=== PATIENT | female | born 1950 | race Caucasian/White ===

== ENCOUNTER 2019-05-28 09:09 | Outpatient (CLI) | payer MEDICARE, SELFPAY ==
[2019-05-28 09:50] LABS: Basophils % 0.3 %; Eosinophils % 0.7 %; Hematocrit 36.9 % (37.0-47.0); Hemoglobin 11.8 g/dL (11.5-15.3); Lymphocytes # 1.2 10^3/uL (0.8-4.8); Lymphocytes % 20.6 %; Mean Corpuscular Hemoglobin 27.2 pg (28.0-34.0); Mean Platelet Volume 10.3 fL (7.4-10.4); Monocytes # 0.5 10^3/uL (0.2-0.9); Monocytes % 8.6 %; Neutrophils # 4.1 10^3/uL (1.8-7.7); Neutrophils % 69.6 %; Nucleated Red Blood Cells % 0 %; Platelet Count 216 10^3/cmm (130-400); Red Blood Count 4.34 10^6/uL (4.1-5.3); Red Cell Distribution Width 13.1 % (12.1-15.1); White Blood Count 5.8 10^3/uL (4.0-10.0)
[2019-05-28 10:07] LABS: Alanine Aminotransferase 11 U/L (0-33); Albumin Level 4.1 g/dL (3.5-5.2); Alkaline Phosphatase 44 IU/L (35-105); Anion Gap 16.9 (5-19); Aspartate Amino Transferase 19 U/L (0-32); Blood Urea Nitrogen 10 mg/dL (8-23); Calcium 10.1 mg/dL (8.5-10.5); Carbon Dioxide 26 mmol/L (22-29); Chloride 99 mmol/L (98-107); Globulin 3.5 g/dL (1.3-4.6); Glomerular Filtration Rate 82.7 mL/min (90-130); Glucose 103 mg/dL (65-115); Potassium 3.9 mmol/L (3.5-5.1); Sodium 138 mmol/L (136-145); Thyroid Stimulating Hormone 3.23 uIU/mL (0.27-4.20); Total Bilirubin 0.5 mg/dL (0.15-1.2); Total Protein 7.6 g/dL (6.6-8.7)
[2019-05-28 10:17] LABS: 25 Hydroxy Vitamin D 100 ng/mL (30-100)
[2019-05-28 16:35] LABS: Iron 99 ug/dL (37-145); Percent Saturation 32.8 % (20-50); Total Iron Binding Capacity 301 mcg/dl; Unsaturated Iron Binding 202 ug/dL (112-347)
--- NOTE | 2019-05-31 06:55 | ONC FU_ITS ---
Dr. Mcfarland Patient Follow-Up Note Patient: Oksana Ma Unit #: [id number]: 1950 Dicatated By: Arnold Mcfarland M.D.Date of Visit:May 28, 2019 Onc Med Follow-up/Prog Note Chief Complaint: Breast cancer. History of Present Illness: This is a 68 year-old woman with grade 2 infiltrating ductal carcinoma of the right breast, stage IA (T1b, N0, M0), ER/CA positive and HER-2/eva negative. She has been in good general health. She had presented with an abnormal screening mammogram. The initial study, from 06/14/2018, was BI-RADS 0, incomplete. Findings included a 9 mm increasing asymmetric density in the upper inner quadrant of the right breast. Additional mammographic views with right breast ultrasound on 07/04/2018 was BI-RADS IVB, suspicious. The mammogram showed a slightly spiculated 9 mm nodular density in the upper inner right breast near the 1:00 position. Ultrasound showed a hypoechoic solid lesion measuring approximately 1.0 x 0.4 x 0.8 cm. Ultrasound-guided biopsy of the right breast on 08/01/2018 showed grade 2 infiltrating ductal carcinoma. The breast prognostic profile showed ER positive at 93% and CA positive at 91%. The tumor was negative for overexpression of HER-2/eva, 1+ by IHC and amplification ratio by FISH of 1.2 with 2.4 HER-2 copies/cell. On 08/30/2017 she underwent right breast lumpectomy with axillary sentinel lymph node biopsy. Pathology showed grade 1 infiltrating ductal carcinoma measuring 0.9 x 0.6 cm. The margins were free of tumor and significant atypia. There was no involvement in 2 sentinel lymph nodes. She was referred to Dr. Garcia for radiation to the right breast. She completed treatment on 10/23/2018 to a total dose of 5256 cGy. She then began adjuvant hormonal therapy with anastrozole 1 mg daily. Her other medical illnesses includee hypertension and osteopenia. Her bone density study in June 2016 showed T score -2.0 in the lumbar spine and -2.0 in both hips. She is a nonsmoker. She is seen for a scheduled visit. She has been feeling good generally. She has good energy and activity tolerance. She has good appetite. Her weight is stable. She has no fever, night sweats, or hot flashes. She has cough associated with sinus drainage. She has no shortness of breath or chest pain. She has no GI or complaints. She has some arthritis in her right thumb. She has had a little low back pain recently. She has no other joint or bone pain. She has no focal neurologic symptoms. Medications: Aleve 1 (220 mg) Tablet Oral PRN, amLODIPine Besylate 1 Tablet (of 5 mg) Oral daily, Anastrozole 1 Tablet (of 1 mg) Oral daily, Calcium Citrate-Vitamin D 1 (600-1000 mg - Units) Tablet Oral daily, Flonase Allergy Relief 2 spray(s) (of 50 mcg/act) Suspension Nasal daily, Fosamax 1 (70 mg) Tablet Oral q 7 days, Lisinopril 1 Tablet (of 20 mg) Oral daily Allergies: Macrobid Review of Systems: Constitutional - She has good energy and her activity is normal. Appetite is good. Her weight is stable. She has no fever, hot flashes, or night sweats. ECOG score is 0, ENMT - She has occasional allergy related sinus symptoms. No mouth sores. No sore throat or difficulty swallowing, Hematologic/Lymphatic - She has some bruising, Respiratory - No shortness of breath. She has some cough with the sinus drainage. No pleuritic pain or hemoptysis, Cardiovascular - No angina pain. No palpitations, Gastrointestinal - No nausea or vomiting. No heartburn or acid reflux. No diarrhea or constipation. No blood in the stool or black stools, Genitourinary (F) - No dysuria or hematuria. No urinary frequency. No urgency or incontinence, Musculoskeletal - She has a little arthritis in her right thumb. She has no other joint or bone pain, Neurologic - No headache. She has occasional dizziness. No numbness/paresthesias or other focal neurologic symptoms, Psychiatric - No anxiety or depression. No insomnia. Vital Signs: Performed on May 28, 2019 13:31 Height - 64.00 in Weight - 142.4 lbs (HIGH) BSA - 1.69 sq.m BMI - 24.44 Temperature - 98.5 F Pulse - 70 /min Respiration - 18 /min BP - 134/78 mm(hg) O2 Sat - 100 % Pain - 0 Physical Examination: Constitutional - She looks good generally, Eyes - Sclerae nonicteric. Conjunctivae clear, ENMT - No lesions noted in the oral cavity, Hematologic/Lymphatic - No cervical, clavicular, or axillary adenopathy, Respiratory - Lungs are clear with good air movement bilaterally, Cardiovascular - Heart rhythm is regular. There is no murmur, gallop, or rub noted, Abdomen - Soft. Liver and spleen are not enlarged. There is no abdominal mass or ascites noted and there is no inguinal adenopathy, Extremities - No edema. Pedal pulses are palpable bilaterally, Neurologic - No focal neurologic deficits noted. Lab/Imaging: Test performed on May 28, 2019 09:21 Iron 99 ug/dL Sodium 138 mmol/L TSH 3.23 uIU/mL Vitamin D (25-Hydroxy), Total 100 ng/mL Potassium 3.9 mmol/L Chloride 99 mmol/L CO2 26 mmol/L UIBC 202 ug/dL Anion Gap 16.9 BUN 10 mg/dL Creatinine 0.7 mg/dL Cr Clearance (Est) 76.26 mL/min eGFR 82.7 mL/min Glucose 103 mg/dL Calcium 10.1 mg/dL Protein, Total 7.6 g/dL Albumin 4.1 g/dL Globulin 3.5 g/dL Bilirubin, Total 0.5 mg/dL ALT (SGPT) 11 U/L AST (SGOT) 19 U/L Alkaline Phosphatase 44 IU/L WBC 5.8 10 3/uL RBC 4.34 10 6/uL HGB 11.8 g/dL HCT 36.9 % MCV 85.0 fL MCH 27.2 pg MCHC 32.0 g/dL RDW 13.1 % Platelet Count 216 10 3/cmm MPV 10.3 fL Neutrophils 4.1 10 3/uL Lymphocytes 1.2 10 3/uL Monocytes 0.5 10 3/uL Eosinophils 0.0 10 3/uL Basophils 0.0 10 3/uL Neutrophil % 69.6 % Lymphocyte % 20.6 % Monocyte % 8.6 % Eosinophil % 0.7 % Basophils % 0.3 % Impression: 1. Patient with grade 2 infiltrating ductal carcinoma of the right breast, stage IA (T1b, N0, M0), ER/CA positive and HER-2/eva negative. 2. She underwent ultrsound directed biopsy of the right breast on 08/01/2018 followed by right breast lumpectomy and axillary sentinel lymph node biopsy on 08/30/2018. 3. She completed radiation to the right breast on 10/23/2018 to a total dose of 5256 cGy. Her other medical illnesses include: 4. Hypertension. 5. Osteoporosis. She began adjuvant hormonal therapy with anastrozole 1 mg daily in October 2018. Thus far she has been tolerating it well. There has been no evidence of recurrence of her breast cancer. Plan: She continues adjuvant hormonal therapy with anastrozole 1 mg daily. She will be scheduled for a followup visit in 6 months. In the meantime, she will need a repeat bone density study. Signed By: Arnold Mcfarland M.D. <<Signature on File>>
== END 2019-05-28 09:10 | disposition home or self-care (01) ==
LOC: ONCMED 09:12
PROVIDERS: PCP Nurse Practitioner Family; Visit Provider Internal Medicine Medical Oncology
DX: C50.211 Malignant neoplasm of upper-inner quadrant of right female breast (principal); D64.9 Anemia, unspecified; M81.0 Age-related osteoporosis without current pathological fracture; E55.9 Vitamin D deficiency, unspecified; I10 Essential (primary) hypertension; M54.5 Low back pain; Z17.0 Estrogen receptor positive status [ER+]; Z79.811 Long term (current) use of aromatase inhibitors; Z92.3 Personal history of irradiation
CPT/HCPCS: 80053; 82306; 83540; 83550; 84443; 85025; 99214

== ENCOUNTER 2019-07-11 10:50 | Outpatient (CLI) | payer MEDICARE, SELFPAY ==
--- NOTE | 2019-07-11 11:26 | MM_ITS ---
WS: [id number] DIAGNOSTIC BILATERAL DIGITAL MAMMOGRAM WITH CAD HISTORY: HX OF BREAST CA COMPARISON: 07/04/2018, 06/14/2018 and 05/15/2017 TECHNIQUE: Bilateral craniocaudad, mediolateral oblique, and mediolateral views are submitted. Comput er aided detection utilized. Breast composition: The breasts are heterogeneously dense, which may obscure small masses. Postsurgic al site in the RIGHT breast at the 12-1 o'clock axis posteriorly. Increased parenchymal thickening at the surgical site and postradiation treatment. Will anticipate additional follow-up imaging. Otherwi se benign calcifications in each breast. MM/[id number] IMPRESSION: BI-RADS: 3-Probably Benign FOLLOW UP: 1 Year Follow-up Diagnostic mammogram recommended in 12 months to reevaluate the recent postsurg ical and postradiation changes in the RIGHT breast and document continued stabi lity.
== END 2019-07-11 10:51 | disposition home or self-care (01) ==
LOC: MAMMO 10:52
PROVIDERS: PCP Nurse Practitioner Family; Visit Provider Nurse Practitioner
DX: Z85.3 Personal history of malignant neoplasm of breast (principal)
CPT/HCPCS: 77066

== ENCOUNTER 2019-11-27 08:45 | Outpatient (CLI) | payer MEDICARE, SELFPAY ==
--- NOTE | 2019-11-28 06:29 | ONC FU_ITS ---
Dr. Mcfarland Patient Follow-Up Note Patient: Oksana Ma Unit #: [id number]: 1950 Dicatated By: Arnold Mcfarland M.D.Date of Visit:Nov 27, 2019 Onc Med Follow-up/Prog Note Chief Complaint: Breast cancer. History of Present Illness: This is a 69 year-old woman with grade 2 infiltrating ductal carcinoma of the right breast, stage IA (T1b, N0, M0), ER/PA positive and HER-2/eva negative. She has been in good general health. She had presented with an abnormal screening mammogram. The initial study, from 06/14/2018, was BI-RADS 0, incomplete. Findings included a 9 mm increasing asymmetric density in the upper inner quadrant of the right breast. Additional mammographic views with right breast ultrasound on 07/04/2018 was BI-RADS IVB, suspicious. The mammogram showed a slightly spiculated 9 mm nodular density in the upper inner right breast near the 1:00 position. Ultrasound showed a hypoechoic solid lesion measuring approximately 1.0 x 0.4 x 0.8 cm. Ultrasound-guided biopsy of the right breast on 08/01/2018 showed grade 2 infiltrating ductal carcinoma. The breast prognostic profile showed ER positive at 93% and PA positive at 91%. The tumor was negative for overexpression of HER-2/eva, 1+ by IHC and amplification ratio by FISH of 1.2 with 2.4 HER-2 copies/cell. On 08/30/2017 she underwent right breast lumpectomy with axillary sentinel lymph node biopsy. Pathology showed grade 1 infiltrating ductal carcinoma measuring 0.9 x 0.6 cm. The margins were free of tumor and significant atypia. There was no involvement in 2 sentinel lymph nodes. She was referred to Dr. Garcia for radiation to the right breast. She completed treatment on 10/23/2018 to a total dose of 5256 cGy. She then began adjuvant hormonal therapy with anastrozole 1 mg daily. Her other medical illnesses includee hypertension and osteopenia. Her bone density study in June 2016 showed T score -2.0 in the lumbar spine and -2.0 in both hips. She is a nonsmoker. She is seen for a scheduled visit. She has been feeling good generally. She has good energy and activity tolerance. ECOG score is 0. She has good appetite. She has no fever, night sweats, or hot flashes. She has a little bit of cough occasionally. She has no shortness of breath or chest pain. She has no GI or complaints. She has had some pain in her right hand, but no other joint or bone pain. She has no focal neurologic symptoms. Medications: Aleve 1 (220 mg) Tablet Oral PRN, amLODIPine Besylate 1 Tablet (of 5 mg) Oral daily, Anastrozole 1 Tablet (of 1 mg) Oral daily, Calcium Citrate-Vitamin D 1 (600-1000 mg - Units) Tablet Oral daily, Flonase Allergy Relief 2 spray(s) (of 50 mcg/act) Suspension Nasal daily, Fosamax 1 (70 mg) Tablet Oral q 7 days, Lisinopril 1 Tablet (of 20 mg) Oral daily Allergies: Macrobid Review of Systems: Constitutional - She has been feeling good. Her energy is good and she has normal activity without restrictions. Her appetite is good and weight is stable. No fever, night sweats, or hot flashes. ECOG score is 0, ENMT - She has seasonal allergies. No mouth sores. No sore throat or difficulty swallowing, Hematologic/Lymphatic - No abnormal bruising or bleeding, Respiratory - No shortness of breath. She occasionally has a little cough. No pleuritic pain or hemoptysis, Cardiovascular - No angina pain. No palpitations, Gastrointestinal - No nausea or vomiting. No heartburn or acid reflux. No diarrhea or constipation. No blood in the stool or black stools, Genitourinary (F) - No dysuria or hematuria. No urinary frequency. No urgency or incontinence, Musculoskeletal - She has arthritis pain in her right hand, Integumentary - No skin complications, Neurologic - No headache or dizziness. No numbness or tingling. No other focal neurologic symptoms, Psychiatric - No anxiety or depression. No insomnia. Vital Signs: Performed on Nov 27, 2019 08:54 Height - 64.00 in Weight - 142.0 lbs (LOW) BSA - 1.69 sq.m BMI - 24.37 Temperature - 99.3 F (HIGH) Pulse - 74 /min Respiration - 18 /min BP - 134/78 mm(hg) O2 Sat - 97 % Pain - 0 Physical Examination: Constitutional - She looks good generally, Eyes - Sclerae nonicteric. Conjunctivae clear, ENMT - No lesions noted in the oral cavity, Hematologic/Lymphatic - No cervical or clavicular adenopathy, Respiratory - Lungs are clear with good air movement bilaterally, Cardiovascular - Heart rhythm is regular. There is no murmur, gallop, or rub noted, Breasts - There are no breast masses noted. There is no axillary adenopathy, Abdomen - Soft. Liver and spleen are not enlarged. There is no abdominal mass or ascites noted and there is no inguinal adenopathy, Extremities - No edema. Pedal pulses are palpable bilaterally, Neurologic - No focal neurologic deficits noted. Lab/Imaging: CBC shows hemoglobin 11.9 g, white blood cell count 6100, and platelet count 241,000. Comprehensive metabolic profile is unremarkable. Impression: 1. Patient with grade 2 infiltrating ductal carcinoma of the right breast, stage IA (T1b, N0, M0), ER/PA positive and HER-2/eva negative. 2. She underwent ultrsound directed biopsy of the right breast on 08/01/2018 followed by right breast lumpectomy and axillary sentinel lymph node biopsy on 08/30/2018. 3. She completed radiation to the right breast on 10/23/2018 to a total dose of 5256 cGy. Her other medical illnesses include: 4. Hypertension. 5. Osteoporosis. She began adjuvant hormonal therapy with anastrozole 1 mg daily in October 2018. Thus far she has been tolerating it well. There has been no evidence of recurrence of her breast cancer. Plan: As she does have underlying osteopenia, will need to to make sure her DEXA scan is current. I will otherwise just plan to see her for a follow-up visit in 6 months. Signed By: Arnold Mcfarland M.D. <<Signature on File>>
== END 2019-11-27 08:46 | disposition home or self-care (01) ==
LOC: ONCMED 08:47
PROVIDERS: PCP Nurse Practitioner Family; Visit Provider Internal Medicine Medical Oncology
DX: C50.211 Malignant neoplasm of upper-inner quadrant of right female breast (principal); Z17.0 Estrogen receptor positive status [ER+]; Z92.3 Personal history of irradiation; Z79.811 Long term (current) use of aromatase inhibitors; I10 Essential (primary) hypertension; M81.0 Age-related osteoporosis without current pathological fracture
CPT/HCPCS: 99214

== ENCOUNTER 2020-06-22 10:11 | Outpatient (CLI) | payer MEDICARE, SELFPAY ==
--- NOTE | 2020-06-25 07:30 | ONC FU_ITS ---
Dr. Mcfarland Patient Follow-Up Note Patient: Oksana Ma Unit #: [id number]: 1950 Dicatated By: Arnold Mcfarland M.D.Date of Visit:Jun 22, 2020 Onc Med Follow-up/Prog Note Chief Complaint: Breast cancer. History of Present Illness: This is a 69 year-old woman with grade 2 infiltrating ductal carcinoma of the right breast, stage IA (T1b, N0, M0), ER/NV positive and HER-2/eva negative. She has been in good general health. She had presented with an abnormal screening mammogram. The initial study, from 06/14/2018, was BI-RADS 0, incomplete. Findings included a 9 mm increasing asymmetric density in the upper inner quadrant of the right breast. Additional mammographic views with right breast ultrasound on 07/04/2018 was BI-RADS IVB, suspicious. The mammogram showed a slightly spiculated 9 mm nodular density in the upper inner right breast near the 1:00 position. Ultrasound showed a hypoechoic solid lesion measuring approximately 1.0 x 0.4 x 0.8 cm. Ultrasound-guided biopsy of the right breast on 08/01/2018 showed grade 2 infiltrating ductal carcinoma. The breast prognostic profile showed ER positive at 93% and NV positive at 91%. The tumor was negative for overexpression of HER-2/eva, 1+ by IHC and amplification ratio by FISH of 1.2 with 2.4 HER-2 copies/cell. On 08/30/2017 she underwent right breast lumpectomy with axillary sentinel lymph node biopsy. Pathology showed grade 1 infiltrating ductal carcinoma measuring 0.9 x 0.6 cm. The margins were free of tumor and significant atypia. There was no involvement in 2 sentinel lymph nodes. She was referred to Dr. Garcia for radiation to the right breast. She completed treatment on 10/23/2018 to a total dose of 5256 cGy. She then began adjuvant hormonal therapy with anastrozole 1 mg daily. Her other medical illnesses includee hypertension and osteopenia. Her bone density study in June 2016 showed T score -2.0 in the lumbar spine and -2.0 in both hips. She is a nonsmoker. She is seen for a scheduled visit. She has been feeling good generally, though she did suffer a stress fracture in her right foot in December. It was managed conservatively. She has been on treatment with alendronate together with calcium/vitamin D supplementation for her osteoporosis. She has good energy and activity tolerance. ECOG score is 0. Appetite also is good. She has no fever, night sweats, or hot flashes. She has no shortness of breath, cough, or chest pain. She has no GI or complaints. She has a little aching when she first gets up in the morning, but does get better after moving around. She has no other joint or bone pain. She does not complain of headache or dizziness. She says her feet tend to go to sleep very easily. Medications: Aleve 1 (220 mg) Tablet Oral PRN, amLODIPine Besylate 1 Tablet (of 5 mg) Oral daily, Anastrozole 1 Tablet (of 1 mg) Oral daily, Calcium Citrate-Vitamin D 1 (600-1000 mg - Units) Tablet Oral daily, Crestor 1 Tablet (of 20 mg) Oral daily, Flonase Allergy Relief 2 spray(s) (of 50 mcg/act) Suspension Nasal daily, Fosamax 1 (70 mg) Tablet Oral q 7 days, Lisinopril 1 Tablet (of 20 mg) Oral daily Allergies: Macrobid Vital Signs: Performed on Jun 22, 2020 10:21 Height - 64.00 in Weight - 143.6 lbs (HIGH) BSA - 1.70 sq.m BMI - 24.65 Temperature - 98.2 F (LOW) Pulse - 73 /min Respiration - 18 /min BP - 132/79 mm(hg) O2 Sat - 99 % Pain - 0 Fatigue - 0 Physical Examination: Constitutional - She looks good generally, Eyes - Sclerae nonicteric. Conjunctivae clear, ENMT - No lesions noted in the oral cavity, Hematologic/Lymphatic - No cervical, clavicular, or axillary adenopathy, Respiratory - Lungs are clear with good air movement bilaterally, Cardiovascular - Heart rhythm is regular. There is no murmur, gallop, or rub noted, Abdomen - Soft. Liver and spleen are not enlarged. There is no abdominal mass or ascites noted and there is no inguinal adenopathy, Extremities - No edema, Neurologic - No focal neurologic deficits noted. Lab/Imaging: Test performed on May 14, 2020 10:04 Cholesterol, Total 257.0 mg/dL Glucose 96.0 mg/dL BUN 9.0 mg/dL HDL Cholesterol 96.0 mg/dL Creatinine 0.7 mg/dL LDL Cholesterol 143.0 mg/dL Cr Clearance (Est) 74.95 mL/min VLDL Cholesterol 18.0 mg/dL Triglycerides 90.0 mg/dL Sodium 139.0 mmol/L Potassium 4.1 mmol/L Chloride 104.0 mmol/L CO2 28.0 mmol/L Calcium 10.0 mg/dL Protein, Total 8.0 g/dL Albumin 4.4 g/dL Globulin 3.6 g/dL Bilirubin, Total 0.6 mg/dL Alkaline Phosphatase 56.0 IU/L AST (SGOT) 26.0 IU/L ALT (SGPT) 24.0 IU/L Problem List: 1. Grade 2 infiltrating ductal carcinoma of the right breast, stage IA (T1b, N0, M0), ER/NV positive and HER-2/eva negative. 2. Hypertension. 3. Osteopenia. Problems Addressed with this Encounter and Plan: 1. Patient with grade 2 infiltrating ductal carcinoma of the right breast, stage IA (T1b, N0, M0), ER/NV positive and HER-2/eva negative. She underwent ultrsound directed biopsy of the right breast on 08/01/2018 followed by right breast lumpectomy and axillary sentinel lymph node biopsy on 08/30/2018. She completed radiation to the right breast on 10/23/2018 to a total dose of 5256 cGy. She began adjuvant hormonal therapy with anastrozole 1 mg daily in October 2018. During follow-up she has tolerated the anastrozole well. Her overall clinical status appears stable with no evidence of recurrence of her breast cancer. She continues adjuvant hormonal therapy with anastrozole 1 mg daily. I will see her again in 6 months. 2. She has underlying osteopenia in December she did suffer a stress fracture of her right foot. She has been on treatment with alendronate together with calcium/vitamin D supplementation. She would have been due for a 2-year interval DEXA scan in October, with a history of the stress fracture, I will try and get that scheduled now. Signed By: Arnold Mcfarland M.D. <<Signature on File>>
== END 2020-06-22 10:12 | disposition home or self-care (01) ==
LOC: ONCMED 10:13
PROVIDERS: PCP Nurse Practitioner Family; Visit Provider Internal Medicine Medical Oncology
DX: C50.211 Malignant neoplasm of upper-inner quadrant of right female breast (principal); Z17.0 Estrogen receptor positive status [ER+]; I10 Essential (primary) hypertension; M85.871 Other specified disorders of bone density and structure, right ankle and foot; M84.374D Stress fracture, right foot, subsequent encounter for fracture with routine healing; Z79.811 Long term (current) use of aromatase inhibitors; Z92.3 Personal history of irradiation
CPT/HCPCS: 99214

== ENCOUNTER 2020-07-24 09:49 | Outpatient (CLI) | payer MEDICARE, SELFPAY ==
--- NOTE | 2020-07-24 09:53 | MM_ITS ---
WS: [id number] Bilateral diagnostic digital mammogram, 07/24/2020 Clinical Data: HX OF BREAST CA Comparison: 07/11/2019, 07/04/2018, 06/14/2018, 05/15/2017, 03/28/2016, 02/24/2015, 08/18/2014, 01/28/2014, 01/16/2014, 05/18/2011, 02/18/2008, 11/16/2006. Findings: There is thickening in the medial aspect of the right breast from the patient's treatment for right b reast cancer. There are residual calcifications in this region. Both breasts show heterogeneous densi ty. No spiculated masses or clustered calcifications are seen. MM/[id number] Impression: 1. Posttreatment changes in medial aspect of right breast. 2. Negative left breast unchanged. 3. Recommend annual mammograms. BIRADS: 2-Benign FOLLOW UP: 1 Year Follow-up The CAD field checker was used.
== END 2020-07-24 09:50 | disposition home or self-care (01) ==
LOC: RADSHAW 09:51
PROVIDERS: PCP Nurse Practitioner Family; Visit Provider Internal Medicine Medical Oncology
DX: Z85.3 Personal history of malignant neoplasm of breast (principal)
CPT/HCPCS: 77066

== ENCOUNTER 2020-11-24 14:07 | Outpatient (CLI) | payer MEDICARE, SELFPAY ==
--- NOTE | 2020-11-24 14:15 | XR_ITS ---
WS: [id number] DEXA (DUAL ENERGY X-RAY ABSORPTIOMETRY) Bone mineral density was performed using a [employer] machine. HISTORY: AGE-RELATED OSTEOPOROSIS WITHOUT CURRENT PATHOLOGICAL FRACTURE COMPARISON: 11/02/2018 Lumbar spine BMD (L1-L4): 0.943 g/cm2 T score: -2.0 Z score: -0.3 Total hip BMD: Left: 0.775 g/cm2. T score: -1.8 Z score: -0.3 Right: 0.803 g/cm2. T score: -1.6 Z score: -0.1 10 year probability of a major osteoporotic fracture is 35%. Compared to the prior study from 11/02/2018. Lumbar spine bone mineral density has increased by 0.1%. Bilateral hips bone mineral density has decreased by 0.9%. XR/XR DEXA axial skeleton* [id number] IMPRESSION: OSTEOPENIA based upon the WHO classification for females. No significant change in bone mineral density since the prior study.
== END 2020-11-24 14:08 | disposition home or self-care (01) ==
PROVIDERS: PCP Nurse Practitioner Family; Visit Provider Internal Medicine Medical Oncology
DX: C50.211 Malignant neoplasm of upper-inner quadrant of right female breast (principal); M85.89 Other specified disorders of bone density and structure, multiple sites
CPT/HCPCS: 77080

== ENCOUNTER 2021-02-10 12:44 | Outpatient (CLI) | payer MEDICARE, SELFPAY ==
--- NOTE | 2021-02-27 09:44 | ONC FU_ITS ---
[facility] Patient Note Patient: Oksana Ma Unit #: [id number]: 1950 Dictated By: Nikki CarrizalesDate of Visit: Feb 10, 2021 Onc MED Follow-Up/Prog Note Chief Complaint: Breast cancer. History of Present Illness: This is a 70 year-old woman with grade 2 infiltrating ductal carcinoma of the right breast, stage IA (T1b, N0, M0), ER/NE positive and HER-2/eva negative. She has been in good general health. She had presented with an abnormal screening mammogram. The initial study, from 06/14/2018, was BI-RADS 0, incomplete. Findings included a 9 mm increasing asymmetric density in the upper inner quadrant of the right breast. Additional mammographic views with right breast ultrasound on 07/04/2018 was BI-RADS IVB, suspicious. The mammogram showed a slightly spiculated 9 mm nodular density in the upper inner right breast near the 1:00 position. Ultrasound showed a hypoechoic solid lesion measuring approximately 1.0 x 0.4 x 0.8 cm. Ultrasound-guided biopsy of the right breast on 08/01/2018 showed grade 2 infiltrating ductal carcinoma. The breast prognostic profile showed ER positive at 93% and NE positive at 91%. The tumor was negative for overexpression of HER-2/eva, 1+ by IHC and amplification ratio by FISH of 1.2 with 2.4 HER-2 copies/cell. On 08/30/2017 she underwent right breast lumpectomy with axillary sentinel lymph node biopsy. Pathology showed grade 1 infiltrating ductal carcinoma measuring 0.9 x 0.6 cm. The margins were free of tumor and significant atypia. There was no involvement in 2 sentinel lymph nodes. She was referred to Dr. Garcia for radiation to the right breast. She completed treatment on 10/23/2018 to a total dose of 5256 cGy. She then began adjuvant hormonal therapy with anastrozole 1 mg daily. Her other medical illnesses includee hypertension and osteopenia. Her bone density study in June 2016 showed T score -2.0 in the lumbar spine and -2.0 in both hips. She is a nonsmoker. She was seen for a scheduled visit with Dr Mcfarland in June 2020. She had been feeling good generally, though she did suffer a stress fracture in her right foot in December 2019. It was managed conservatively. She has been on treatment with alendronate together with calcium/vitamin D supplementation for her osteoporosis. She did have follow-up DEXA scan on November 24, 2020 which reported a T score of a -2.0 in the lumbar spine the left hip bone mineral density T score -1.8 right hip was -1.6. Compared to the prior study from 11/02/2018 the lumbar spine bone mineral density had increased by 0.1% bilateral hips bone mineral density had decreased by 0.9%. She continues on the alternate with calcium and vitamin D supplementation. Mrs. Ma is here today for 6-month follow-up. She reports overall she is doing well. She states her energy is good. She is remains very active. She denies any breast changes. She has had no lumps, skin changes or any concerns. She states her breathing is good she denies any shortness of breath or orthopnea. She denies any cough or hemoptysis. She denies chest pain, palpitations. Her appetite is good. She denies any bone pain. She has had no further evidence of any kind of stress fractures or bony injury. She denies any mouth sores, sore throat or difficulty swallowing. She has not had any evidence of osteonecrosis of the jaw. She denies any lower extremity edema. She states her bowels and bladder are normal for her. She has occasional hot flashes but states that they are nothing worrisome. She denies any joint pain. Her ECOG is 0. Past Medical History: Hypertension Migraine headaches Osteoporosis Past Surgical History: Breast biopsy - x 2 Left knee arthroscopy Tympanostomy tubes Covid vaccine #3 in 2020 Covid 19 vaccine 2nd in 2020 Covid vaccine #2 in 2020 Covid vaccine #1 in 2020 Colonoscopy in 2018 Allergies: Macrobid Medications: Aleve 1 (220 mg) Tablet Oral PRN amLODIPine Besylate 1 Tablet (of 5 mg) Oral daily Anastrozole 1 Tablet (of 1 mg) Oral daily Calcium Citrate-Vitamin D 1 (600-1000 mg - Units) Tablet Oral daily Crestor 1 Tablet (of 20 mg) Oral daily Flonase Allergy Relief 2 spray(s) (of 50 mcg/act) Suspension Nasal daily Fosamax 1 (70 mg) Tablet Oral q 7 days Lisinopril 1 Tablet (of 20 mg) Oral daily Family History: Ms. Ma's mother at age 90: Colon Cancer, and pneumonia. Ms. Ma's father at age 91: Parkinson's. Ms. Ma has 1 sister who is alive. Father at age 91 with complications of Parkinson's disease. Her mother had colon cancer and at age 90 with pneumonia. One sister is in good health. Social History: Ms. Ma is and she is retired. Ms. Ma has never smoked. She has no history of drinking. She is a nonsmoker. She does not drink alcohol. Review Of Symptoms: <See Above> Vital Signs: Performed on Feb 10, 2021 13:00 Height - 64.00 in Weight - 143.4 lbs (LOW) BSA - 1.70 sq.m BMI - 24.61 Temperature - 97.2 F (LOW) Pulse - 78 /min Respiration - 18 /min BP - 138/85 mm(hg) O2 Sat - 100 % Pain - 0 Fatigue - 2,0 - Fully active, able to carry on all predisease activities without restrictions. (ECOG) Physical Examination: Constitutional Alert, oriented, no acute distress. Skin pink, warm and dry. Head Normocephalic; atraumatic. Eyes Conjunctivae and sclerae are clear and without icterus. Pupils are reactive and equal. Neck Supple without masses or thyromegaly. No jugular venous distension. Hematologic/Lymphatic No petechiae or purpura. No tender or palpable lymph nodes in the cervical, supraclavicular areas. Respiratory Lungs are clear to auscultation without rhonchi or wheezing. Cardiovascular Regular rate and rhythm of heart without murmurs,clicks, gallops or rubs. Breasts No axillary adenopathy or tenderness bilaterally. Right lumpectomy site is unremarkable-some slight thickness, but no lesions or abnormalities. No abnormal findings in left breast exam Abdomen Non-tender, non-distended, no masses, ascites. Good bowel sounds noted in all quads. No guarding or rebound tenderness. No pulsatile masses. Back/Spine Non-tender to palpation. Extremities No visible deformities, no cyanosis, clubbing or edema. Musculoskeletal No tenderness or swelling, normal range of motion without obvious weakness. Integumentary No rashes or lesions. Neurologic No sensory or motor deficits, normal cerebellar function, normal gait. Psychiatric Alert and oriented times three. Coherent speech. Verbalizes understanding of our discussions today. Laboratory: Impression: 1. Grade 2 infiltrating ductal carcinoma of the right breast, stage IA (T1b, N0, M0), ER/NE positive and HER-2/eva negative. 2. Hypertension. 3. Osteopenia. Plan/Problems Addressed at this Visit: 1. Patient with grade 2 infiltrating ductal carcinoma of the right breast, stage IA (T1b, N0, M0), ER/NE positive and HER-2/eva negative. She underwent ultrsound directed biopsy of the right breast on 08/01/2018 followed by right breast lumpectomy and axillary sentinel lymph node biopsy on 08/30/2018. She completed radiation to the right breast on 10/23/2018 to a total dose of 5256 cGy. She began adjuvant hormonal therapy with anastrozole 1 mg daily in October 2018. During follow-up she has tolerated the anastrozole well. Her overall clinical status appears stable with no evidence of recurrence of her breast cancer. A. Proceed with anastrozole 1 mg daily???she began this October 2018. We discussed that she will need this for a total of 5 years if that length of need is not extended by research by 2023. B. We did discuss her DEXA scan from November 24, 2020. She is encouraged to continue the alendronate and calcium/vitamin D supplementation. She is also encouraged to do weightbearing exercise such as walking. She remains very active. C. Her last mammogram was on 07/24/2020 which reported BI-RADS 2 benign 1 year follow-up was recommended. This was bilateral diagnostic digital mammogram. D. We will plan to see her back in 6 months with CBC CMP and vitamin D level if this is not drawn at [facility] close to her visit. Would like to coordinate her labs with Donald Rahman if it is a month or 2 before her visit that would be fine as well. The diagnosis for CBC CMP vitamin D level is breast cancer as well as osteopenia. E. Mrs. Ma was encouraged to contact us in interim should questions or problems arise. 2. She has underlying osteopenia in December she did suffer a stress fracture of her right foot. She has been on treatment with alendronate together with calcium/vitamin D supplementation. A. We did discuss her DEXA scan from November 24, 2020. She is encouraged to continue the alendronate and calcium/vitamin D supplementation. She is also encouraged to do weightbearing exercise such as walking. She remains very active. B. She will be due for repeat DEXA scan in November 2022. Signed By: Nikki Carrizales-, AOCNP Arnold Mcfarland MD <<Signature on File>>
== END 2021-02-10 12:45 | disposition home or self-care (01) ==
LOC: ONCMED 12:49
PROVIDERS: PCP Nurse Practitioner Family; Visit Provider Nurse Practitioner
DX: C50.811 Malignant neoplasm of overlapping sites of right female breast (principal); Z17.0 Estrogen receptor positive status [ER+]; I10 Essential (primary) hypertension; M85.80 Other specified disorders of bone density and structure, unspecified site; Z79.899 Other long term (current) drug therapy; Z79.811 Long term (current) use of aromatase inhibitors; Z90.11 Acquired absence of right breast and nipple
CPT/HCPCS: 99214

== ENCOUNTER 2021-06-17 09:26 | Outpatient (CLI) | payer MEDICARE, SELFPAY ==
[2021-06-17 10:43] LABS: Add Urine Microscopic? NO; Charge for UA Resulting for Rev
[2021-06-17 10:53] LABS: Bilirubin Urine Neg (Negative); Blood Urine Neg (Negative); Glucose Urine UA Norm (Normal); Ketones Urine Negative (Negative); Leukocyte Esterase Urine Negative (Negative); Nitrate Urine Negative (Negative); Protein Urine Neg (Negative); Urine Appearance Clear (CLEAR); Urine Color Yellow (Yellow); Urobilinogen Urine Norm (Negative); pH Urine 7 (5-7)
== END 2021-06-17 09:27 | disposition home or self-care (01) ==
PROVIDERS: Internal Medicine Medical Oncology; PCP Nurse Practitioner Family; Visit Provider Nurse Practitioner
DX: R35.0 Frequency of micturition (principal)
CPT/HCPCS: 81003

== ENCOUNTER → 2021-06-24 14:50 | Outpatient (BNVA) | payer MEDICARE, SELFPAY | PROVIDERS: PCP Nurse Practitioner Family; Visit Provider Nurse Practitioner Women's Health | DX: R35.0 Frequency of micturition (principal) | CPT/HCPCS: 87086 ==

== ENCOUNTER 2021-08-03 13:37 | Outpatient (CLI) | payer MEDICARE, SELFPAY ==
--- NOTE | 2021-08-03 13:50 | MM_ITS ---
WS: [email or web address] BILATERAL 3D TOMOSYNTHESIS DIGITAL DIAGNOSTIC MAMMOGRAPHY WITH CAD CLINICAL INFORMATION: HX OF BREAST CA HISTORY: COMPARISON: July 24, 2020 TECHNIQUE: Bilateral CC, MLO, and ML views. FINDINGS: The breasts are composed of heterogeneous fibroglandular density, which can limit the detection of sm all underlying mass lesions. Stable lumpectomy with parenchymal fibrosis and dystrophic calcification RIGHT breast. Vascular calcification. Punctate and lucent centered calcifications. No suspicious focal mass, asymmetry, calcifications, or architectural distortion. No evidence of ally gnancy. MM/[place] [id number] IMPRESSION: BI-RADS: 2-Benign FOLLOW UP: 1 Year Follow-up Recommend return to annual diagnostic mammography.
== END 2021-08-03 13:38 | disposition home or self-care (01) ==
LOC: RAD 13:40
PROVIDERS: PCP Nurse Practitioner Family; Visit Provider Internal Medicine Medical Oncology
DX: Z85.3 Personal history of malignant neoplasm of breast (principal)
CPT/HCPCS: 77062

== ENCOUNTER 2021-09-15 14:17 | Oncology outpatient (recurring) (ONCR) | payer MEDICARE, SELFPAY | END 2021-10-14 23:59 | disposition home or self-care (01) | PROVIDERS: PCP Nurse Practitioner Family; Visit Provider Nurse Practitioner Family | DX: C50.211 Malignant neoplasm of upper-inner quadrant of right female breast (principal); Z17.0 Estrogen receptor positive status [ER+]; N95.2 Postmenopausal atrophic vaginitis; M85.80 Other specified disorders of bone density and structure, unspecified site; E55.9 Vitamin D deficiency, unspecified; Z79.899 Other long term (current) drug therapy; Z79.818 Long term (current) use of other agents affecting estrogen receptors and estrogen levels; Z92.3 Personal history of irradiation | CPT/HCPCS: 99214 ==

== ENCOUNTER 2022-03-21 12:18 | Oncology outpatient (recurring) (ONCR) | payer MEDICARE, SELFPAY | END 2022-04-16 23:59 | disposition home or self-care (01) | LOC: ONCMED 12:18 | PROVIDERS: PCP Nurse Practitioner Family; Visit Provider Internal Medicine Medical Oncology | DX: C50.211 Malignant neoplasm of upper-inner quadrant of right female breast (principal); Z17.0 Estrogen receptor positive status [ER+]; Z79.818 Long term (current) use of other agents affecting estrogen receptors and estrogen levels; Z92.21 Personal history of antineoplastic chemotherapy; Z92.3 Personal history of irradiation | CPT/HCPCS: 99213; 99214 ==

== ENCOUNTER 2022-08-11 12:33 | Outpatient (CLI) | payer MEDICARE, SELFPAY ==
--- NOTE | 2022-08-11 13:19 | MM_ITS ---
WS: [email or web address] BILATERAL 3D TOMOSYNTHESIS DIGITAL DIAGNOSTIC MAMMOGRAPHY WITH CAD CLINICAL INFORMATION: HX OF BREAST CA COMPARISON: August 03, 2021 TECHNIQUE: Bilateral CC, MLO, and ML views. FINDINGS: The breasts are composed of heterogeneous fibroglandular density, which can limit the detection of sm all underlying mass lesions. Vascular calcification. Punctate and dystrophic calcifications. Evidence of prior RIGHT lumpectomy with parenchymal fibrosis. Treatment-related changes RIGHT breast. No suspicious focal mass, asymmetry, calcifications, or architectural distortion. No evidence of ally gnancy. MM/[place] [id number] IMPRESSION: BI-RADS: 2-Benign FOLLOW UP: 1 Year Follow-up Recommend return to annual diagnostic mammography.
== END 2022-08-11 12:34 | disposition home or self-care (01) ==
PROVIDERS: PCP Nurse Practitioner Family; Visit Provider Internal Medicine Medical Oncology
DX: Z85.3 Personal history of malignant neoplasm of breast (principal)
CPT/HCPCS: 77062; G0279

== ENCOUNTER 2022-09-20 12:45 | Oncology outpatient (recurring) (ONCR) | payer MEDICARE, SELFPAY | END 2022-10-14 23:59 | disposition home or self-care (01) | PROVIDERS: PCP Nurse Practitioner Family; Visit Provider Internal Medicine Medical Oncology | DX: C50.211 Malignant neoplasm of upper-inner quadrant of right female breast (principal); Z79.811 Long term (current) use of aromatase inhibitors; Z92.3 Personal history of irradiation; Z17.0 Estrogen receptor positive status [ER+] | CPT/HCPCS: 99213 ==

== ENCOUNTER 2022-12-14 13:16 | Outpatient (CLI) | payer MEDICARE, SELFPAY ==
--- NOTE | 2022-12-14 13:23 | XR_ITS ---
WS: [email or web address] DEXA (DUAL ENERGY X-RAY ABSORPTIOMETRY) Bone mineral density was performed using a [employer] machine. HISTORY: M85.80 - Other specified disorders of bone density and st... COMPARISON: 11/24/2020 Lumbar spine BMD (L1-L4): 0.929 g/cm2 T score: -2.1 Z score: -0.3 Total hip BMD: Left: 0.758 g/cm2. T score: -2.0 Z score: -0.3 Right: 0.773 g/cm2. T score: -1.9 Z score: -0.2 10 year probability of a major osteoporotic fracture is 39.7%. Compared to the prior study from 11/24/2020. Lumbar spine bone mineral density has decreased by 1.5%. Bilateral hips bone mineral density has decreased by 3.0%. IMPRESSION: OSTEOPENIA based upon the WHO classification for females. Significant decrease in bone mineral density within the hips. No change of bone mineral density withi n the lumbar spine.
== END 2022-12-14 13:17 | disposition home or self-care (01) ==
PROVIDERS: PCP Nurse Practitioner Family; Visit Provider Nurse Practitioner Family
DX: M85.80 Other specified disorders of bone density and structure, unspecified site (principal); Z78.0 Asymptomatic menopausal state
CPT/HCPCS: 77080

== ENCOUNTER 2023-01-24 14:45 | Oncology outpatient (recurring) (ONCR) | payer MEDICARE, SELFPAY ==
[2023-01-24] MEDS: denosumab 60 mg SDV SUBCUT (15:42)
[2023-01-24 15:57] VITALS: BP 177/81; PULSE 87; RESP 16; TEMP 36.4; O2SAT 98
== END 2023-02-14 23:59 | disposition home or self-care (01) ==
PROVIDERS: PCP Nurse Practitioner Family; Visit Provider Internal Medicine Medical Oncology
DX: C50.211 Malignant neoplasm of upper-inner quadrant of right female breast (principal); Z17.0 Estrogen receptor positive status [ER+]; Z79.818 Long term (current) use of other agents affecting estrogen receptors and estrogen levels; Z92.21 Personal history of antineoplastic chemotherapy; Z92.3 Personal history of irradiation; M85.80 Other specified disorders of bone density and structure, unspecified site
CPT/HCPCS: 99214; J0897

== ENCOUNTER 2023-08-14 08:30 | Oncology outpatient (recurring) (ONCR) | payer MEDICARE, SELFPAY ==
[2023-07-28 08:23] VITALS: BP 131/76; PULSE 67; RESP 16; TEMP 36.3; O2SAT 98
[2023-07-28 08:44] LABS: Alanine Aminotransferase 13 U/L (0-33); Albumin Level 4.3 g/dL (3.5-5.2); Alkaline Phosphatase 38 U/L (35-105); Aspartate Amino Transferase 20 U/L (0-32); Blood Urea Nitrogen 10 mg/dL (8-23); Carbon Dioxide 27 mmol/L (22-29); Chloride 104 mmol/L (98-107); Globulin 2.8 g/dL (1.3-4.6); Glucose 94 mg/dL (65-115); Osmolality Calculated 289 mOsm/kg (285-295); Sodium 140 mmol/L (136-145); Total Bilirubin 0.5 mg/dL (0.15-1.2); Total Protein 7.1 g/dL (6.6-8.7)
[2023-07-28] MEDS: denosumab 60 mg SDV SUBCUT (09:15)
--- NOTE | 2023-08-14 08:30 | MM_ITS ---
WS: [email or web address] DIAGNOSTIC BILATERAL DIGITAL BREAST TOMOSYNTHESIS MAMMOGRAPHY WITH CAD HISTORY: breast cancer; compare to previous COMPARISON: 08/11/2022, 08/03/2021 and 07/24/2020 TECHNIQUE: Bilateral craniocaudad, mediolateral oblique, and mediolateral views are submitted with to mosynthesis and SM. Computer aided detection utilized. Breast composition: The breasts are heterogeneously dense, which may obscure small masses. Postsurgic al lumpectomy RIGHT breast. Increasing vascular calcification. No recurrent mass. No new area of dist ortion. IMPRESSION: MM/[place] [id number] BI-RADS: 2-Benign FOLLOW UP: 1 Year Follow-up
== END 2023-08-15 23:59 | disposition home or self-care (01) ==
LOC: RAD 08:51 → ONCMED 08-31 16:47
PROVIDERS: Nurse Practitioner Family; PCP Nurse Practitioner Family; Visit Provider Internal Medicine Medical Oncology
DX: Z53.9 Procedure and treatment not carried out, unspecified reason (principal); C50.211 Malignant neoplasm of upper-inner quadrant of right female breast
CPT/HCPCS: 36415; 77062; 80053; 96372; G0279; J0897

== ENCOUNTER 2023-10-24 11:42 | Oncology outpatient (recurring) (ONCR) | payer MEDICARE, SELFPAY | END 2023-11-15 23:59 | disposition home or self-care (01) | PROVIDERS: PCP Nurse Practitioner Family; Visit Provider Internal Medicine Medical Oncology | DX: C50.211 Malignant neoplasm of upper-inner quadrant of right female breast (principal); M85.50 Aneurysmal bone cyst, unspecified site | CPT/HCPCS: 99213 ==

== ENCOUNTER 2024-01-24 09:22 | Oncology outpatient (recurring) (ONCR) | payer MEDICARE, SELFPAY ==
[2024-01-24] MEDS: denosumab 60 mg SDV SUBCUT (09:46)
== END 2024-02-15 23:59 | disposition home or self-care (01) ==
PROVIDERS: PCP Nurse Practitioner Family; Visit Provider Internal Medicine Medical Oncology
DX: Z79.899 Other long term (current) drug therapy; M85.80 Other specified disorders of bone density and structure, unspecified site
CPT/HCPCS: 96372; J0897

== ENCOUNTER 2024-04-24 13:18 | Oncology outpatient (recurring) (ONCR) | payer MEDICARE, SELFPAY | END 2024-05-17 23:59 | disposition home or self-care (01) | PROVIDERS: PCP Nurse Practitioner Family; Visit Provider Internal Medicine | DX: C50.211 Malignant neoplasm of upper-inner quadrant of right female breast (principal); M85.80 Other specified disorders of bone density and structure, unspecified site; Z79.899 Other long term (current) drug therapy | CPT/HCPCS: 99214 ==

== ENCOUNTER 2024-08-14 08:56 | Outpatient (CLI) | payer MEDICARE, SELFPAY ==
--- NOTE | 2024-08-14 09:00 | MM_ITS ---
WS: [email or web address] DIAGNOSTIC BILATERAL DIGITAL BREAST TOMOSYNTHESIS MAMMOGRAPHY WITH CAD HISTORY: history of breast cancer, RIGHT. COMPARISON: 08/14/2023, 08/11/2022 TECHNIQUE: Bilateral craniocaudad, mediolateral oblique, and mediolateral views are submitted with tomosynthesis and SM. Computer aided detection utilized. Breast composition: The breasts are heterogeneously dense, which may obscure small masses. Mild volume loss RIGHT breast with distortion in the medial breast from prior lumpectomy. Mild thickening of the trabecular pattern. Dystrophic calcifications and arterial calcifications RIGHT breast. LEFT breast is negative with a few benign calcifications. MM/MM diag BI tomosynthesis [id number] IMPRESSION: BI-RADS: 2 - Benign FOLLOW UP: 1 Year Follow-up
== END 2024-08-14 08:57 | disposition home or self-care (01) ==
PROVIDERS: PCP Nurse Practitioner Family; Visit Provider Internal Medicine Medical Oncology
DX: C50.211 Malignant neoplasm of upper-inner quadrant of right female breast (principal); R92.333 Mammographic heterogeneous density, bilateral breasts; Z98.890 Other specified postprocedural states; N64.89 Other specified disorders of breast; R92.1 Mammographic calcification found on diagnostic imaging of breast
CPT/HCPCS: 77062; G0279

== ENCOUNTER 2024-08-27 07:54 | Oncology outpatient (recurring) (ONCR) | payer MEDICARE, SELFPAY ==
[2024-08-27 08:13] LABS: Basophils % 0.4 %; Eosinophils # 0.1 10^3/uL (0.0-0.8); Eosinophils % 1.7 %; Hematocrit 34.6 % (36-47); Lymphocytes % 22.5 %; Mean Corpuscular HGB Conc 31.5 g/dL (30-55); Mean Corpuscular Hemoglobin 28.5 pg (27-33); Mean Corpuscular Volume 90.3 fl (85-98); Mean Platelet Volume 9.8 fL (7.4-10.4); Monocytes # 0.5 10^3/uL (0.2-0.9); Monocytes % 11.5 %; Neutrophils # 2.93 10^3/uL (1.8-7.7); Neutrophils % 63.5 %; Nucleated Red Blood Cells % 0 %; Platelet Count 175 10^3/cmm (157-399); Red Blood Count 3.83 10^6/uL (3.85-5.65); Red Cell Distribution Width 13.3 % (12.1-15.1); White Blood Count 4.62 10^3/uL (3.29-11.43)
[2024-08-27 08:50] LABS: Alanine Aminotransferase 14 U/L (0-33); Albumin Level 4.2 g/dL (3.5-5.2); Alkaline Phosphatase 42 U/L (35-105); Anion Gap 14.7 (5-19); Aspartate Amino Transferase 18 U/L (0-32); Blood Urea Nitrogen 16 mg/dL (8-23); CA 15-3 28.9 U/mL (0-25); Calcium 9.1 mg/dL (8.5-10.5); Carbon Dioxide 25 mmol/L (22-29); Chloride 102 mmol/L (98-107); Globulin 2.8 g/dL (1.3-4.6); Glucose 95 mg/dL (65-115); Osmolality Calculated 287 mOsm/kg (285-295); Potassium 3.7 mmol/L (3.5-5.1); Sodium 138 mmol/L (136-145); Total Bilirubin 0.4 mg/dL (0.15-1.2)
[2024-08-27 13:30] LABS: Reticulocyte % 0.9 % (0.5-2.0)
[2024-08-27] MEDS: denosumab 60 mg SDV SUBCUT (13:31)
[2024-08-27 14:20] LABS: Ferritin 95 ng/mL (15-150); Iron 71 ug/dL (37-145); Lactate Dehydrogenase 204 U/L (135-214); Percent Saturation 21.7 % (20-50); Total Iron Binding Capacity 326 mcg/dl; Unsaturated Iron Binding 255 ug/dL (112-347); Vitamin B12 263 pg/mL (232-1245)
== END 2024-09-14 23:59 | disposition home or self-care (01) ==
PROVIDERS: PCP Nurse Practitioner Family; Visit Provider Internal Medicine
DX: C50.211 Malignant neoplasm of upper-inner quadrant of right female breast (principal); M85.80 Other specified disorders of bone density and structure, unspecified site; Z79.899 Other long term (current) drug therapy; Z17.0 Estrogen receptor positive status [ER+]; D64.9 Anemia, unspecified; Z92.3 Personal history of irradiation; Z79.811 Long term (current) use of aromatase inhibitors
CPT/HCPCS: 36415; 80053; 82607; 82728; 82746; 83010; 83540; 83550; 83615; 85025; 85045; 86300; 96372; 96377; 99213; J0897

== ENCOUNTER 2024-10-01 14:12 | Oncology outpatient (recurring) (ONCR) | payer MEDICARE, SELFPAY | END 2024-10-14 23:59 | disposition home or self-care (01) | PROVIDERS: PCP Nurse Practitioner Family; Visit Provider Nurse Practitioner Family | DX: C50.211 Malignant neoplasm of upper-inner quadrant of right female breast (principal); Z17.0 Estrogen receptor positive status [ER+]; M85.89 Other specified disorders of bone density and structure, multiple sites; D64.9 Anemia, unspecified; Z92.3 Personal history of irradiation; Z79.899 Other long term (current) drug therapy; Z79.811 Long term (current) use of aromatase inhibitors | CPT/HCPCS: 99213 ==

== ENCOUNTER 2024-12-17 13:43 | Oncology outpatient (recurring) (ONCR) | payer MEDICARE, SELFPAY ==
--- NOTE | 2024-12-17 14:00 | XR_ITS ---
WS: [email or web address] DEXA (DUAL ENERGY X-RAY ABSORPTIOMETRY) Bone mineral density was performed using a [employer] machine. HISTORY: AI use, post menopausal COMPARISON: 12/14/2022 Lumbar spine BMD (L1-L4): 0.992 g/cm2 T score: -1.6 Z score: 0.3 Total hip BMD: Left: 0.792 g/cm2. T score: -1.7 Z score: 0.1 Right: 0.789 g/cm2. T score: -1.7 Z score: 0.1 10 year probability of a major osteoporotic fracture is 42.0%. Compared to the prior study from 12/14/2022. Lumbar spine bone mineral density has decreased by 1.5%. Bilateral hips bone mineral density has decreased by 3.0%. XR/XR DEXA axial skeleton* [id number] IMPRESSION: OSTEOPENIA based upon the WHO classification for females. Significant decrease in bone mineral density within the hips since the prior . No significant change in the lumbar spine.
== END 2025-01-14 23:59 | disposition home or self-care (01) ==
LOC: ONCMED 13:44
PROVIDERS: PCP Nurse Practitioner Family; Visit Provider Nurse Practitioner Family
DX: C50.211 Malignant neoplasm of upper-inner quadrant of right female breast (principal); Z17.0 Estrogen receptor positive status [ER+]; M85.89 Other specified disorders of bone density and structure, multiple sites; D64.9 Anemia, unspecified; Z92.3 Personal history of irradiation; Z79.899 Other long term (current) drug therapy; Z79.811 Long term (current) use of aromatase inhibitors; M85.80 Other specified disorders of bone density and structure, unspecified site
CPT/HCPCS: 77080

== ENCOUNTER → 2025-01-13 08:31 | Outpatient (BNVA) | payer MEDICARE, SELFPAY | PROVIDERS: PCP Nurse Practitioner Family; Visit Provider Podiatrist Foot & Ankle Surgery | DX: M79.672 Pain in left foot (principal); M84.375A Stress fracture, left foot, initial encounter for fracture; M85.89 Other specified disorders of bone density and structure, multiple sites; M19.072 Primary osteoarthritis, left ankle and foot | CPT/HCPCS: 73630; 99204 ==

== ENCOUNTER → 2025-02-10 08:45 | Outpatient (BNVA) | payer MEDICARE, SELFPAY | PROVIDERS: PCP Nurse Practitioner Family; Visit Provider Podiatrist Foot & Ankle Surgery | DX: M79.672 Pain in left foot (principal); M84.375A Stress fracture, left foot, initial encounter for fracture; M85.89 Other specified disorders of bone density and structure, multiple sites | CPT/HCPCS: 73630; 99213 ==

== ENCOUNTER 2025-03-03 11:12 | Oncology outpatient (recurring) (ONCR) | payer MEDICARE, SELFPAY ==
[2025-03-03 11:36] LABS: Hematocrit 34.9 % (36-47); Hemoglobin 11.20 g/dL (11.27-16.99); Mean Corpuscular HGB Conc 32.1 g/dL (30-55); Mean Corpuscular Hemoglobin 28.3 pg (27-33); Mean Corpuscular Volume 88.1 fl (85-98); Nucleated Red Blood Cells % 0 %; Platelet Count 180 10^3/cmm (157-399); Red Blood Count 3.96 10^6/uL (3.85-5.65); White Blood Count 5.41 10^3/uL (3.29-11.43)
[2025-03-03 11:52] LABS: Alanine Aminotransferase 15 U/L (0-33); Albumin Level 4.2 g/dL (3.5-5.2); Alkaline Phosphatase 45 U/L (35-105); Anion Gap 10.9 (5-19); Aspartate Amino Transferase 19 U/L (0-32); Blood Urea Nitrogen 15 mg/dL (8-23); Calcium 9.2 mg/dL (8.5-10.5); Carbon Dioxide 29 mmol/L (22-29); Chloride 104 mmol/L (98-107); Globulin 3.3 g/dL (1.3-4.6); Glucose 129 mg/dL (65-115); Osmolality Calculated 293 mOsm/kg (285-295); Potassium 3.9 mmol/L (3.5-5.1); Sodium 140 mmol/L (136-145); Total Protein 7.5 g/dL (6.6-8.7)
[2025-03-03] MEDS: denosumab 60 mg SDV (Infusion Clinic Only) SUBCUT (13:25)
== END 2025-03-16 23:59 | disposition home or self-care (01) ==
PROVIDERS: Nurse Practitioner; PCP Nurse Practitioner Family; Visit Provider Nurse Practitioner Family
DX: Z08 Encounter for follow-up examination after completed treatment for malignant neoplasm; Z85.3 Personal history of malignant neoplasm of breast; M85.89 Other specified disorders of bone density and structure, multiple sites; M84.374D Stress fracture, right foot, subsequent encounter for fracture with routine healing; Z79.899 Other long term (current) drug therapy; Z92.3 Personal history of irradiation; Z53.9 Procedure and treatment not carried out, unspecified reason
CPT/HCPCS: 36415; 80053; 82306; 85025; 96372; 99214; J0897

== ENCOUNTER → 2025-03-05 11:05 | Outpatient (BNVA) | payer MEDICARE, SELFPAY | PROVIDERS: PCP Nurse Practitioner Family; Visit Provider Podiatrist Foot & Ankle Surgery | DX: M84.375A Stress fracture, left foot, initial encounter for fracture (principal); M85.872 Other specified disorders of bone density and structure, left ankle and foot | CPT/HCPCS: 73630; 99213 ==

== ENCOUNTER → 2025-04-16 10:44 | Outpatient (BNVA) | payer MEDICARE, SELFPAY | PROVIDERS: PCP Nurse Practitioner Family; Visit Provider Podiatrist Foot & Ankle Surgery | DX: M79.672 Pain in left foot (principal); M79.671 Pain in right foot; M85.89 Other specified disorders of bone density and structure, multiple sites; S92.325K Nondisplaced fracture of second metatarsal bone, left foot, subsequent encounter for fracture with nonunion; X58.XXXA Exposure to other specified factors, initial encounter | CPT/HCPCS: 73630; 99213 ==